=== PATIENT | female | born 1965 | race Caucasian/White ===

== ENCOUNTER 2017-05-22 17:50 | Emergency (ER) | payer MEDICARE, MEDICAID | END 2017-05-22 21:10 | disposition home or self-care (01) | LOC: ERS 17:50 | DX: J20.9 Acute bronchitis, unspecified (principal); I11.0 Hypertensive heart disease with heart failure; I50.9 Heart failure, unspecified; F31.9 Bipolar disorder, unspecified | CPT/HCPCS: 99283 ==

== ENCOUNTER 2017-08-15 14:45 | Outpatient (CLI) | payer MEDICARE, MEDICAID | END 2017-08-15 14:46 | disposition home or self-care (01) | LOC: BICRAD 14:45 | PROVIDERS: ATTEND Neurological Surgery | DX: M54.16 Radiculopathy, lumbar region (principal); M54.12 Radiculopathy, cervical region; M47.816 Spondylosis without myelopathy or radiculopathy, lumbar region; I70.90 Unspecified atherosclerosis; Z98.890 Other specified postprocedural states | CPT/HCPCS: 72040; 72100 ==

== ENCOUNTER 2018-02-06 06:34 | Day surgery (SDC) | payer MEDICARE, MEDICAID ==
[2018-02-05 12:20] VITALS: BMI 28.3
[2018-02-06 07:38] VITALS: BP 122/99; TEMP 97.2
--- NOTE | 2018-02-06 10:10 | RAD ---
CERVICAL SPINE MYELOGRAM INDICATION: Cervical radiculopathy, neck pain. PROCEDURE: After informed consent had been obtained, the patient was escorted to the interventional suite and pl aced on the procedural table. [employer] imaging was performed. The patient was placed into a prone posi tion. Skin on the low back was then prepped and draped in the standard sterile fashion and topical a nd regional soft tissue anesthesia was achieved with 1% lidocaine and sodium bicarbonate. L3-4 left interlaminar approach was selected, and a 22 gauge needle was uneventfully advanced into the thecal sac with clear color CSF. Subsequently, 9 cc Isovue-M 300 was instilled into the thecal sac under re al time fluoroscopy. Appropriate opacification of thecal sac demonstrated with imaging stored for co nfirmation. The needle was then removed from the patient. The patient tolerated the procedure well and was then transferred to CT to undergo subsequent myelogram. Reference separate report for full d etails. FINDINGS: On the ct scan technician lumbar images, there is evidence of a mild T12 compression fracture which has progressed from prior exam. This finding was telephoned to patient's neurosurgeon, Ernst Odell MD. IMPRESSION: Technically successful cervical myelogram as detailed above. POS: [facility]
--- NOTE | 2018-02-06 10:33 | CT ---
CERVICAL SPINE CT WITH CONTRAST CT CERVICAL MYELOGRAM: CLINICAL HISTORY: Cervical radiculopathy, neck pain. COMPARISON: Reference is made to a prior cervical spine myelogram 04/11/17. FINDINGS: There is anterior multilevel metallic fusion spanning C4 through C6, similar-appearing. There is a d isk space prosthesis again noted at the C3-4 level. There is no interval hardware complication evide nt. C1-2 level reveals degenerative hypertrophy without significant central canal stenosis. There is mil d effacement of the right ventral aspect of the thecal sac. C2-3: Mild disk osteophyte is present. There is right side uncinate process hypertrophy with minima l right foraminal narrowing. No high-grade left foraminal stenosis or central canal compromise. C3-4: Right asymmetric broad-based disk osteophyte is present with mild mass effect upon the right c entral hemicord. There is uncinate process hypertrophy and moderate bilateral neural foraminal steno sis. C4-5: Broad-based osteophyte ridge is present with mild central canal stenosis. There is a right pa racentral osteophyte which does efface and slightly flatten the ventral aspect of the cervical spinal cord. Bilateral uncinate process hypertrophy is present, right greater than left, with moderate rig ht and mild left neural foraminal stenosis. C5-6: There is mild central canal stenosis and mild to moderate bilateral neural foraminal stenosis on the basis of broad-based osteophyte and uncinate process hypertrophy. C6-7: Broad-based osteophyte ridge results in mild to moderate central canal narrowing with mild christopher tral cord flattening more notable to the right of midline. There is severe left and mild to moderate right neural foraminal stenosis on the basis of uncinate process hypertrophy and disk-osteophyte com plex. C7-T1: No high-grade central canal or foraminal stenosis. IMPRESSION: Multilevel degenerative change throughout the postoperative cervical spine as outlined above. POS: [facility]
[2018-02-06] MEDS ORDERED: Iopamidol-M 300 61% 15 ML VIAL ONE (14:48)
== END 2018-02-06 10:05 | disposition home or self-care (01) ==
LOC: RAD 06:34
PROVIDERS: ATTEND Neurological Surgery
DX: M48.02 Spinal stenosis, cervical region (principal); M48.52XA Collapsed vertebra, not elsewhere classified, cervical region, initial encounter for fracture; M47.22 Other spondylosis with radiculopathy, cervical region
CPT/HCPCS: 62302; 72126

== ENCOUNTER 2018-02-26 09:30 | Outpatient (CLI) | payer MEDICARE, MEDICAID | END 2018-02-26 09:31 | disposition home or self-care (01) | LOC: CTENTCT 09:30 | PROVIDERS: ATTEND Otolaryngology Plastic Surgery within the Head & Neck | DX: J32.9 Chronic sinusitis, unspecified (principal) | CPT/HCPCS: 70486 ==

== ENCOUNTER 2018-03-11 09:02 | Outpatient (CLI) | payer MEDICARE, MEDICAID ==
[2018-03-11 09:51] LABS: Hemoglobin 13.9 g/dL (12.0-16.0); Mean Corpuscular HGB CONC 34.8 g/dL (32.0-36.0); Mean Corpuscular Hemoglobin 31.3 pg (27.0-31.0); Mean Corpuscular Volume 89.7 fL (78.0-98.0); Mean Platelet Volume 7.6 fL (7.4-10.4); Platelet Count 191 thou/uL (130-400); Red Blood Cell (RBC) Count 4.46 mill/uL (4.20-5.40); White Blood Cell (WBC) Count 4.9 thou/uL (4.8-10.8)
[2018-03-11 10:43] LABS: Anion Gap 12 mmol/L (10-20); BUN (Urea Nitrogen) 13 mg/dL (9.8-20.1); Calc. Creatinine Clearance 0 mL/min (70-130); Calcium 8.9 mg/dL (7.8-10.44); Carbon Dioxide 24 mmol/L (22-29); Chloride 108 mmol/L (98-107); Estimated GFR-MDRD 79; Glucose 100 mg/dL (70-105); Potassium 4.1 mmol/L (3.5-5.1); Sodium 140 mmol/L (136-145)
--- NOTE | 2018-03-13 15:07 | EKG ---
Test Reason : Blood Pressure : / mmHG Vent. Rate : 087 BPM Atrial Rate : 087 BPM P-R Int : 166 ms QRS Dur : 080 ms QT Int : 378 ms P-R-T Axes : 083 085 087 degrees QTc Int : 454 ms Normal sinus rhythm Low voltage QRS Nonspecific T wave abnormality Abnormal ECG When compared with ECG of 01-JAN-2017 11:55, Nonspecific T wave abnormality no longer evident in Inferior leads T wave inversion no longer evident in Lateral leads Confirmed by JADON HOGAN MD ([id number]) on 03/13/2018 3:07:15 PM Referred By: CHUYITA Confirmed By:JADON HOGAN MD
== END 2018-03-11 09:03 | disposition home or self-care (01) ==
LOC: LABBT 09:02
PROVIDERS: ATTEND Neurological Surgery
DX: Z01.818 Encounter for other preprocedural examination (principal); M54.12 Radiculopathy, cervical region
CPT/HCPCS: 80048; 85027; 93005; 93010

== ENCOUNTER 2018-03-11 09:30 | Inpatient (IN) | payer MEDICARE, MEDICAID ==
[2018-03-11 09:50] VITALS: BMI 29.2
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
[2018-03-18] MEDS ORDERED: Clindamycin/D5W 900 mg/50 ml Premix Bag ONE (06:04)
[2018-03-18] MEDS ORDERED: Levofloxacin 500 mg/D5W 100 ml Premix Bag ONE (06:04)
[2018-03-18] MEDS ORDERED: Oxymetazoline HCl 0.05% ( 15 ML ) ONE ×2 (06:05→06:21)
[2018-03-18] MEDS ORDERED: Thrombin 5000 UNITS/5 ML VIAL ONE (06:21)
[2018-03-18] MEDS ORDERED: Lidocaine 1% w/Epinephrine 1:100K 30 ML VIAL ONE (06:21)
[2018-03-18] MEDS ORDERED: Midazolam HCl 2 mg/2 ml Vial ONE (06:58)
[2018-03-18] MEDS ORDERED: Fentanyl 100 MCG/2 ML VIAL ONE ×2 (07:02→08:50)
[2018-03-18] MEDS ORDERED: Morphine Sulfate 2 MG/ML SYRINGE SLOW IVP PRN (09:24)
[2018-03-18] MEDS ORDERED: Promethazine HCl 25 MG/ML VIAL SLOW IVP PRN (09:24)
[2018-03-18] MEDS ORDERED: Meperidine HCl/PF 25 MG/ML VIAL SLOW IVP PRN (09:24)
[2018-03-18] MEDS ORDERED: HYDROmorphone 2 MG/ML VIAL SLOW IVP PRN (09:24)
[2018-03-18] MEDS ORDERED: Promethazine HCl 25 MG/ML VIAL IM PRN (09:24)
[2018-03-18] MEDS ORDERED: Ondansetron HCl/PF 4 MG/2 ML Vial IVP PRN (09:24)
--- NOTE | 2018-03-18 10:37 | OP ---
DATE OF PROCEDURE: 03/18/2018 SURGEON: Marcos Odell M.D. PROGRAM DEVELOPER: CORY Ball INDICATION: Pain. DIAGNOSIS: Cervical stenosis with cervical radiculopathy and neck pain. PROCEDURE: Removal of anterior instrumentation and anterior cervical diskectomy and fusion C6-7. ANESTHESIA: General. TECHNIQUE: The patient was brought into the operating room and placed under general anesthesia. She was placed on the table in supine position. Dr. Ralph Arango started the case with an ENT procedure to be dictated in a separate note. We then planned a transverse incision on the neck on the right s frankie. Dr. Arango was responsible for the exposure down to the prevertebral space which will also be d ictated in a separate note. After access to the front of the spine. We identified the patient's pre viously placed hardware. This was removed in total, including 6 screws and a plate. We then obtaine d hemostasis. We then redirected our attention to the level below at C6-7 where an annulotomy was pe rformed as well as removal of disk material and anterior and posterior osteophytes. After a complete decompression, a 6 mm lordotic PEEK cage packed with allograft and autograft material was placed wit hin the interbody space. An anterior cervical plate was then fashioned to the front of the spine and secured with a total of 4 fixed screws. Midline and lateral structures were inspected and found to be free from significant trauma. The wound was irrigated. Hemostasis was maintained throughout. Th e wound was then closed in anatomic layers and a pressure dressing was applied. There were no known procedural complications.
[2018-03-18] MEDS ORDERED: Glycopyrrolate 0.2 MG/ML 5 ML SYRINGE ONE (12:19)
[2018-03-18] MEDS ORDERED: Lidocaine 1% PF 5 ML VIAL ONE ×2 (12:19)
[2018-03-18] MEDS ORDERED: PHENYLEPHRINE-NS 100 MCG/ML 10 ML SYRINGE ONE (12:19)
[2018-03-18] MEDS ORDERED: PROPOFOL 200 MG/20 ML VIAL ONE (12:19)
[2018-03-18] MEDS ORDERED: Dexamethasone 20 MG/5 ML VIAL ONE (12:19)
[2018-03-18] MEDS ORDERED: Succinylcholine Chloride 20 MG/ML 10 ml SYRINGE FS ONE (12:19)
[2018-03-18] MEDS ORDERED: Ondansetron HCl/PF 4 MG/2 ML Vial ONE (12:19)
--- NOTE | 2018-03-19 11:01 | PQF ---
JORDAN AN JAMES BRADLEY MD [id number] CLINICAL DOCUMENTATION CLARIFICATION FORM: POST DISCHARGE Addendum to original discharge summary date: ____ Late entry note date: __ DATE: 03/19/18 ATTN: Please exercise your independent, professional judgment in responding to the clarification form. Clinical indicators are provided on the bottom of this form for your review Please check appropriate box(s) to clarify if the following diagnosis has been ruled in or ruled out: Myelopathy (CDI/ Coding list diagnosis here) [ ] Ruled in diagnosis [ ] Continue to treat [ ] Resolved [ ] Ruled out diagnosis [ ] Cannot rule out diagnosis [ ] Other diagnosis [ ] Unable to determine In addition, please specify: Present on Admission (POA): [ ] Yes [ ] No [ ] Unable to determine For continuity of documentation, please document condition throughout progress notes and discharge summary. Thank You. CLINICAL INDICATORS - SIGNS / SYMPTOMS / LABS To support the diagnosis Neck and shoulder pain RISK FACTORS To support diagnosis Spinal stenosis & radiculopathy TREATMENTS To support diagnosis Spinal fusion (This form is maintained as a part of the permanent medical record) 2014 [employer]. All Rights Reserved [facility]
--- NOTE | 2018-03-19 11:22 | OP ---
PREOPERATIVE DIAGNOSES: 1. Pansinusitis. 2. Bilateral nasal polyposis. 3. Bilateral inferior turbinate hypertrophy. 4. Nasal obstruction. 5. Cervical myelopathy. PROCEDURES: 1. Bilateral endoscopic sinus surgery, total ethmoidectomies. 2. Bilateral endoscopic sinus surgery, frontal sinusotomy with removal of tissue. 3. Bilateral endoscopic sinus surgery, maxillary antrostomies with removal of tissue. 4. Bilateral endoscopic sinus surgery, sphenoidotomies with removal of tissue. 5. Bilateral inferior turbinate submucosal resection. 6. [place] cranial based image guided surgery. SURGEON: Rik Arango M.D. ESTIMATED BLOOD LOSS: 50 mL. COMPLICATIONS: None. ANESTHESIA: GETA. PROCEDURE IN DETAIL: The patient was taken to the operating room and placed supine on the table. Ge neral endotracheal anesthesia was obtained. The patient was prepped and draped for standard nasal pr ocedure. Following this, the 0 degree scope was advanced in the nasal cavity. The landmark image gu ided system was then set up, calibrated and was noted to be within 0.1 mm of accuracy. Following thi s, the nasal cavity was examined with the nasal endoscope, nasal polyps were completely obstructing t he nasal cavity bilaterally. These were removed using the 0 degree microdebrider under image guided surveillance. Following this, the middle turbinates were noted and identified and were gently medial ized with a [place] elevator. The uncinate process which was displaced anteriorly and medially from th e nasal polyps was removed using the microdebrider and upbiting [place] forceps bilaterally. Follo wing this, the ethmoidal bulla was identified bilaterally and was punctured and removed using the 0 d egree microdebrider and upbiting [place] forceps under image guided procedure. Following this, the natural maxillary sinus ostia was widened and displaced secondary to profuse nasal polyps which were removed using the straight microdebrider. Tissue was removed. The nasal polyps were removed from w ithin the maxillary sinus using the curved microdebrider bilaterally. Following this, the grand lame lla was identified bilaterally and was punctured in the posterior ethmoidal cells. Working from post erior to anterior, the ethmoidal cells were opened and nasal polyps were removed throughout the ethmo idal areas. Following this, the sphenoid sinuses were approached through the ethmoidectomies where t he image guided system was used to create a sphenoidotomy in the bilateral anterior wall of the sphen oid sinuses. This was then widened medially and inferiorly with the microdebrider. Following this, 40 degree microdebrider was then used to further open the frontal recess cells and frontal sinus osti a bilaterally. Nasal polyps were removed from the frontal sinuses bilaterally. Following this, infe rior turbinates were punctured on their anterior inferior aspect with the submucosal microdebrider an d submucosal resection was performed of the anterior inferior aspects of the inferior turbinates bila terally. Following this, the patient tolerated procedure well. Nasal cavity was irrigated. MeroPac ks were placed within the middle meatus.
--- NOTE | 2018-03-19 11:26 | OP ---
DATE OF PROCEDURE: 03/18/2018 PREOPERATIVE DIAGNOSES: 1. Cervical myelopathy. 2. Need for anterior approach for revision anterior cervical disk fusion surgery. SURGEON: Rik Arango M.D. DIRECTOR COMM[facility]ITY [facility]: CORY Vaughn ESTIMATED BLOOD LOSS: Less than 5 mL. COMPLICATIONS: None. ANESTHESIA: GETA. PROCEDURE IN DETAIL: The patient was taken to the operating room. Previous sinus surgery was perfor med. Following this, a new procedure was created and the patient was reprepped and draped for standa rd surgical procedure. An incision was made just inferior to a previous transverse lower right neck incision. The incision was through skin and subcutaneous tissue and the platysmal layer. Subplatysm al flaps were elevated superiorly and inferiorly. Following this, the sternocleidomastoid fascia was identified. Staying just anterior to this, dissection was then carried medially in the neck. The l aryngeal structures as well as the recurrent laryngeal nerve was identified and was retracted mediall y. The great vessels were identified and retracted laterally. Exposure to the previous plate was pr ovided to the Neurosurgery group and then Dr. Fredy Odell took over the remainder of the procedure.
== END 2018-03-18 12:15 | disposition home or self-care (01) | DRG 472 ==
LOC: SURG A 03-18 05:27
PROVIDERS: ADMIT Neurological Surgery; ATTEND Neurological Surgery
PROC: 0RG10AJ Fusion of Cervical Vertebral Joint with Interbody Fusion Device, Posterior Approach, Anterior Column, Open Approach (ICD-10-PCS; principal; 2018-03-18)
PROC: 0RT30ZZ Resection of Cervical Vertebral Disc, Open Approach (ICD-10-PCS; 2018-03-18)
PROC: 0RP10AZ Removal of Interbody Fusion Device from Cervical Vertebral Joint, Open Approach (ICD-10-PCS; 2018-03-18)
PROC: 0CJS8ZZ Inspection of Larynx, Via Natural or Artificial Opening Endoscopic (ICD-10-PCS; 2018-03-18)
DX: M48.02 Spinal stenosis, cervical region (principal); G95.9 Disease of spinal cord, unspecified; M54.12 Radiculopathy, cervical region; Z88.0 Allergy status to penicillin; Z88.6 Allergy status to analgesic agent; Z79.899 Other long term (current) drug therapy; I25.10 Atherosclerotic heart disease of native coronary artery without angina pectoris; K21.9 Gastro-esophageal reflux disease without esophagitis; J45.909 Unspecified asthma, uncomplicated; Z95.1 Presence of aortocoronary bypass graft; Z95.5 Presence of coronary angioplasty implant and graft; J33.9 Nasal polyp, unspecified; J34.3 Hypertrophy of nasal turbinates; J34.2 Deviated nasal septum
CPT/HCPCS: 76001; C1713; C1776; J0131; J1100; J1956; J2001; J2250; J2405; J2704; J3010; J3490

== ENCOUNTER 2018-04-29 13:02 | Outpatient (CLI) | payer MEDICARE, MEDICAID ==
--- NOTE | 2018-04-29 14:01 | RAD ---
CERVICAL SPINE THREE VIEWS: HISTORY: A 53-year-old female with a history of cervical radiculopathy. Prior surgery on 03/18/2018. COMPARISON: CT cervical myelogram from 02/06/2018. FINDINGS: Intradiskal prosthesis at C3-C4. Removal of the anterior cervical fusion changes at C4-C5 with persi stent anterior metal plate and screws at C6-C7 with intradiskal prosthesis. C7 and T1 are partially obscured on the lateral view, and portions of C1 and the tip of the odontoid are partially obscured o n the AP open-mouth view. Minimal diffuse inferior prevertebral soft tissue swelling, possibly relat ed to prior surgery. IMPRESSION: Postoperative changes of the cervical spine. Minimal prevertebral soft tissue swelling. No overt ma lalignment. POS: [facility]
== END 2018-04-29 13:03 | disposition home or self-care (01) ==
LOC: TBSIIMAG 13:02
PROVIDERS: ATTEND Neurological Surgery
DX: M54.12 Radiculopathy, cervical region (principal); R22.1 Localized swelling, mass and lump, neck; Z98.890 Other specified postprocedural states
CPT/HCPCS: 72040

== ENCOUNTER 2018-05-13 08:57 | Day surgery (SDC) | payer MEDICARE, MEDICAID ==
[2018-05-12 14:12] VITALS: BMI 28.3
[2018-05-13] MEDS ORDERED: Propofol 500 MG/50 ML VIAL ONE (10:51)
[2018-05-13] MEDS ORDERED: Fentanyl 100 MCG/2 ML VIAL ONE ×2 (10:51→13:12)
[2018-05-13] MEDS ORDERED: Midazolam HCl 2 mg/2 ml Vial ONE (10:51)
[2018-05-13] MEDS ORDERED: EPINEPHrine 1 MG/ML AMP ONE (11:56)
[2018-05-13] MEDS ORDERED: Promethazine HCl 25 MG/ML VIAL ONE (12:45)
[2018-05-13] MEDS ORDERED: PROPOFOL 200 MG/20 ML VIAL ONE (15:22)
[2018-05-13] MEDS ORDERED: Ondansetron PF 4 MG/2 ML Vial ONE (15:22)
[2018-05-13] MEDS ORDERED: Succinylcholine Chloride 20 MG/ML 10 ml SYRINGE FS ONE (15:22)
[2018-05-13] MEDS ORDERED: Dexamethasone 20 MG/5 ML VIAL ONE (15:22)
[2018-05-13] MEDS ORDERED: Lidocaine 1% PF 5 ML VIAL ONE (15:22)
--- NOTE | 2018-05-14 12:48 | OP ---
DATE OF PROCEDURE: 05/13/2018 PREOPERATIVE DIAGNOSES: 1. Right true vocal cord paralysis. 2. Dysphonia. POSTOPERATIVE DIAGNOSES: 1. Right true vocal cord paralysis. 2. Dysphonia. PROCEDURES: 1. Microsuspension direct laryngoscopy. 2. Right true vocal cord Prolaryn vocal cord medialization laryngoplasty. SURGEON: Dr. Rik Arango. ESTIMATED BLOOD LOSS: 0 mL. COMPLICATIONS: None. ANESTHESIA: Jet ventilation. DESCRIPTION OF PROCEDURE: The patient was taken to the operating room and placed supine on the table . [place] jet ventilation tube was placed in the trachea by Anesthesia staff. The head of bed was turned 90 degrees. A shoulder roll was placed and the patient's neck and head were gently placed int o minimal extension. Following this, the Dedo laryngoscope was used to examine the oral cavity, orop harynx, and hypopharyngeal structures which were all noted to be within normal limits. Following thi s, the laryngeal inlet was visualized. Vocal cords noted to be within normal limits. The subglottic area was clear. The patient was placed in suspension and the operating microscope was brought into the field using the 400 mm lens. The right true vocal cord was visualized and the injection needle l oaded with Prolaryn injection was injected just lateral to the thyroarytenoid muscle. Multiple injec tions were made in the posterior and mid and anterior portions of the right true vocal cord medializi ng the vocal cord. Patient tolerated the procedure well.
== END 2018-05-13 15:10 | disposition home or self-care (01) ==
LOC: SDC 08:57
PROVIDERS: ATTEND Otolaryngology Plastic Surgery within the Head & Neck
PROC: 3E0F8GC Introduction of Other Therapeutic Substance into Respiratory Tract, Via Natural or Artificial Opening Endoscopic (ICD-10-PCS; principal; 2018-05-13)
DX: J38.01 Paralysis of vocal cords and larynx, unilateral (principal); Z79.51 Long term (current) use of inhaled steroids; Z79.82 Long term (current) use of aspirin; Z79.899 Other long term (current) drug therapy; Z88.0 Allergy status to penicillin; Z88.8 Allergy status to other drugs, medicaments and biological substances; Z98.890 Other specified postprocedural states
CPT/HCPCS: 85014; 96374; J0171; J1100; J2001; J2250; J2405; J2550; J2704; J3010

== ENCOUNTER 2018-06-16 08:38 | Outpatient (CLI) | payer MEDICARE, MEDICAID ==
--- NOTE | 2018-06-16 15:50 | RAD ---
DOUBLE CONTRAST BARIUM ESOPHAGRAM: 06/16/18 INDICATION: History of dysphagia. Fluoroscopic time: 1.6 minutes. Total exposure: 19.524 Gy*cm2. TECHNIQUE: Thin barium, thick barium and effervescent crystals utilized for a double contrast esophagram. FINDINGS: The esophagus demonstrates a normal contour and mucosal pattern. There is a small hiatal hernia. Mode rate gastroesophageal reflux was seen up to the mid thoracic spine. There are mild tertiary contracti ons of the mid to distal esophagus. Small hiatal hernia was present. A 12.5 mm tablet passed without difficulty. IMPRESSION: 1. Small hiatal hernia. 2. Moderate gastroesophageal reflux. 3. Tertiary contraction of the mid to distal esophagus may be related to presbyesophagus or esop hageal dysmotility related to possible esophagitis. POS: [facility]
== END 2018-06-16 08:39 | disposition home or self-care (01) ==
LOC: RAD 08:38
PROVIDERS: ATTEND Otolaryngology Plastic Surgery within the Head & Neck
DX: R13.10 Dysphagia, unspecified (principal); K44.9 Diaphragmatic hernia without obstruction or gangrene; K21.9 Gastro-esophageal reflux disease without esophagitis
CPT/HCPCS: 74220

== ENCOUNTER 2018-07-15 08:54 | Day surgery (SDC) | payer MEDICARE, MEDICAID ==
[2018-07-10 13:40] VITALS: BMI 28.5
[2018-07-15] MEDS ORDERED: EPINEPHrine 1 MG/ML AMP ONE (10:30)
[2018-07-15] MEDS ORDERED: Fentanyl 100 MCG/2 ML VIAL ONE (10:33)
[2018-07-15] MEDS ORDERED: Midazolam HCl 2 mg/2 ml Vial ONE (10:33)
[2018-07-15] MEDS ORDERED: Propofol 500 MG/50 ML VIAL ONE (11:08)
[2018-07-15] MEDS ORDERED: Hydrocodone-Acetamin 15 ML UDCUP ONE (13:34)
[2018-07-15] MEDS ORDERED: Ondansetron PF 4 MG/2 ML Vial ONE (19:00)
[2018-07-15] MEDS ORDERED: Succinylcholine Chloride 20 MG/ML 10 ml SYRINGE FS ONE (19:00)
[2018-07-15] MEDS ORDERED: Lidocaine 1% PF 5 ML VIAL ONE (19:00)
[2018-07-15] MEDS ORDERED: Dexamethasone 20 MG/5 ML VIAL ONE (19:00)
[2018-07-15] MEDS ORDERED: Naloxone HCl 0.4 mg/ml Vial ONE (19:00)
[2018-07-15] MEDS ORDERED: PHENYLEPHRINE-NS 100 MCG/ML 10 ML SYRINGE ONE (19:00)
--- NOTE | 2018-07-16 02:39 | OP ---
DATE OF PROCEDURE: 07/15/2018 PREOPERATIVE DIAGNOSES: 1. Right true vocal cord paralysis. 2. Dysphonia. POSTOPERATIVE DIAGNOSES: 1. Right true vocal cord paralysis. 2. Dysphonia. PROCEDURES PERFORMED: 1. Right true vocal cord medialization, laryngoplasty with Prolaryn injection. 2. Microsuspension direct laryngoscopy. ESTIMATED BLOOD LOSS: 0 mL. COMPLICATION: None. ANESTHESIA: Jet ventilation. DESCRIPTION OF PROCEDURE: The patient was taken to the operating room. Jet ventilation was obtained by the anesthesia staff. Tube was secured in the left lower lip, and head of the bed was turned, and a shoulder roll was placed, and the head was placed in very gentle extension. Following this, a tooth guard was inserted into the oral cavity, and a Dedo laryngoscope was then used to examine the oral cavity, oropharynx, and hypopharynx, which was noted to be within normal limits. The true vocal cords were visualized and was placed in suspension using the 400 mm lens. The laryngeal inlet and vocal cords were visualized. The Prolaryn injection was injected just lateral to the thyroarytenoid muscle, medialized in the vocal cord. A total of 25 mL of injection was placed. The patient tolerated the procedure well. Job ID: [id number]
== END 2018-07-15 14:28 | disposition home or self-care (01) ==
LOC: SDC 08:54
PROVIDERS: ATTEND Otolaryngology Plastic Surgery within the Head & Neck
PROC: 3E0F8GC Introduction of Other Therapeutic Substance into Respiratory Tract, Via Natural or Artificial Opening Endoscopic (ICD-10-PCS; principal; 2018-07-15)
DX: J38.01 Paralysis of vocal cords and larynx, unilateral (principal); J45.909 Unspecified asthma, uncomplicated; K21.9 Gastro-esophageal reflux disease without esophagitis; G43.909 Migraine, unspecified, not intractable, without status migrainosus; I51.9 Heart disease, unspecified; Z79.82 Long term (current) use of aspirin; Z79.51 Long term (current) use of inhaled steroids; Z79.899 Other long term (current) drug therapy; Z88.0 Allergy status to penicillin; Z88.8 Allergy status to other drugs, medicaments and biological substances
CPT/HCPCS: 36415; 85014; J0171; J1100; J2001; J2250; J2310; J2405; J2704; J3010

== ENCOUNTER 2018-08-26 09:32 | Outpatient (CLI) | payer MEDICARE, OTHER | END 2018-08-26 09:33 | disposition home or self-care (01) | LOC: BICMAMMO 09:32 | PROVIDERS: ATTEND Family Medicine | DX: Z12.31 Encounter for screening mammogram for malignant neoplasm of breast (principal); Z80.3 Family history of malignant neoplasm of breast; Z85.850 Personal history of malignant neoplasm of thyroid; Z85.09 Personal history of malignant neoplasm of other digestive organs | CPT/HCPCS: 77063; 77067 ==

== ENCOUNTER 2018-11-02 13:48 | Outpatient (CLI) | payer MEDICARE, MEDICAID | END 2018-11-02 13:49 | disposition home or self-care (01) | LOC: CTENTCT 13:48 | PROVIDERS: ATTEND Otolaryngology Plastic Surgery within the Head & Neck | DX: J32.9 Chronic sinusitis, unspecified (principal) | CPT/HCPCS: 70486 ==

== ENCOUNTER 2018-11-11 08:09 | Day surgery (SDC) | payer MEDICARE, OTHER ==
[2018-11-10 15:30] VITALS: BMI 29.0
[2018-11-11] MEDS ORDERED: Albuterol Sulfate 2.5 mg/3 ml Neb ONE (10:55)
[2018-11-11] MEDS ORDERED: Oxymetazoline HCl 0.05% ( 15 ML ) ONE ×2 (11:13→11:43)
[2018-11-11] MEDS ORDERED: Lidocaine 1% w/Epinephrine 1:100K 20 ML VIAL ONE (11:13)
[2018-11-11] MEDS ORDERED: Albuterol Sulfate 2.5 mg/3 ml Neb NEB SCH (11:15)
[2018-11-11] MEDS ORDERED: Fentanyl 100 MCG/2 ML VIAL ONE ×2 (11:52→12:44)
[2018-11-11] MEDS ORDERED: Meperidine HCl/PF 25 MG/ML VIAL ONE (14:10)
[2018-11-11] MEDS ORDERED: PROPOFOL 200 MG/20 ML VIAL ONE (16:09)
[2018-11-11] MEDS ORDERED: Succinylcholine Chloride 20 MG/ML 10 ml SYRINGE FS ONE (16:09)
[2018-11-11] MEDS ORDERED: PHENYLEPHRINE-NS 100 MCG/ML 10 ML SYRINGE ONE (16:09)
[2018-11-11] MEDS ORDERED: Dexamethasone 20 MG/5 ML VIAL ONE (16:09)
[2018-11-11] MEDS ORDERED: Ondansetron PF 4 MG/2 ML Vial ONE (16:09)
[2018-11-11] MEDS ORDERED: Lidocaine 1% PF 5 ML VIAL ONE (16:09)
--- NOTE | 2018-11-12 18:43 | OP ---
DATE OF PROCEDURE: 11/11/2018 PREOPERATIVE DIAGNOSES: 1. Chronic rhinosinusitis. 2. Nasal polyposis. 3. Nasal septal deviation. 4. Bilateral inferior turbinate hypertrophy. 5. Nasal obstruction. POSTOPERATIVE DIAGNOSES: 1. Chronic rhinosinusitis. 2. Nasal polyposis. 3. Nasal septal deviation. 4. Bilateral inferior turbinate hypertrophy. 5. Nasal obstruction. PROCEDURES PERFORMED: 1. Bilateral endoscopic sinus surgery, total ethmoidectomy with removal of tissue. 2. Bilateral endoscopic sinus surgery, maxillary antrostomies with removal of tissue. 3. Bilateral endoscopic sinus surgery, frontal sinusotomies with removal of tissue. 4. Bilateral endoscopic sinus surgery, sphenoidotomies with removal of tissue. 5. Nasal septoplasty. 6. Bilateral inferior turbinate submucosal resection. 7. [place] image-guided intraoperative navigational cranial base surgery. ESTIMATED BLOOD LOSS: 100 mL. COMPLICATIONS: None. ANESTHESIA: HOME HEALTH CARE PHYSICIAN. PROCEDURE IN DETAIL: Patient was taken to the operating room and placed supine on the table. General endotracheal anesthesia was obtained by the anesthesia staff. Tube was secured in the left lower lip. Patient was then placed in the beach chair position, and Afrin pledgets were placed in the nasal cavity. Injections of 1% lidocaine with 1:100,000 epinephrine were made into the nasal septum as well as the inferior turbinates. Patient was then prepped and draped in standard surgical fashion for nasal surgery. Following this, the Afrin pledgets were removed. A Loving incision was made on the left nasal septum. Submucoperichondrial dissection was performed. The deviated portions of the septum included portions of the cartilage and the bony septum. These isolated areas were removed using 3 cutting rongeurs. There was noted to be a large dorsal and caudal strut, left intact for support of the nose. The mucoperichondrial flaps were then reapproximated using a 4-0 gut stitch. Any straight pieces of cartilage were crushed prior to this and placed between the mucoperichondrial flaps. Following this, the inferior turbinates were then punctured with a submucosal coblation wand, and submucosal coblations were performed of multiple areas of the inferior portion of the anterior inferior turbinate. Please note that the submucosal microdebrider was used to submucosally resect the anterior and inferior portions of the inferior turbinates bilaterally. Following this, the turbinates were laterally fractured with a [place] elevator. Following this, the [employer] image-guided system was set up and calibrated. It was noted to be within 1 mm of accuracy. Following this, 0-degree scope was advanced in the middle meatus. The middle turbinates had scarring present from the middle turbinates to the lateral nasal wall. There was also an excessive amount of nasal polyps and fungal like debris that was encountered in this area. The scar bands were lysed with the 0-degree microdebrider. The middle turbinates were gently medialized. Following this, the remnant of the ethmoidal cells were further opened using the image-guided system, working from anterior to posterior. Nasal polyps were removed throughout this area as well as purulence and thick scar debris. Following this, the maxillary sinuses were addressed using the curved microdebrider and the maxillary sinuses were reopened. There was previous scar bands and nasal polyps, which were completely obstructing the maxillary sinuses. On both sides were nasal polyps within the maxillary sinus that were removed using the curved microdebrider. Following this, a 45-degree scope and the up-biting microdebrider along with the image-guided system was then used to further open and dissect the very narrow frontal recess and frontal sinus ostia. There were nasal polyps throughout the frontal recess and frontal sinuses bilaterally, which were removed with a microdebrider and curved suction device. Following this, the sphenoid sinuses were approached through the posterior ethmoidal cells using the image guided system. The anterior face of the sphenoid sinuses was reopened on the left side. The left-sided small scar band and small polyps were removed. The right side had a marked amount of osteitic bone, which was opened and was widened medially and inferiorly with the microdebrider. Nasal cavity was irrigated. Mirapex was placed. [place] splints were placed and secured. The patient tolerated the procedure well. Job ID: [id number]
--- NOTE | 2018-11-13 07:13 | EKG ---
Test Reason : PREOP Blood Pressure : / mmHG Vent. Rate : 094 BPM Atrial Rate : 094 BPM P-R Int : 176 ms QRS Dur : 088 ms QT Int : 364 ms P-R-T Axes : 073 071 064 degrees QTc Int : 455 ms Normal sinus rhythm Abnormal ECG Confirmed by BRANDYN MARTIN ([id number]) on 11/13/2018 7:13:08 AM Referred By: DARIA Confirmed By:BRANDYN MARTIN
== END 2018-11-11 15:40 | disposition home or self-care (01) ==
LOC: SDC 08:09
PROVIDERS: ATTEND Otolaryngology Plastic Surgery within the Head & Neck
PROC: 09SM0ZZ Reposition Nasal Septum, Open Approach (ICD-10-PCS; principal; 2018-11-11)
PROC: 09TL0ZZ Resection of Nasal Turbinate, Open Approach (ICD-10-PCS; 2018-11-11)
PROC: 09TV8ZZ Resection of Left Ethmoid Sinus, Via Natural or Artificial Opening Endoscopic (ICD-10-PCS; 2018-11-11)
PROC: 09TU8ZZ Resection of Right Ethmoid Sinus, Via Natural or Artificial Opening Endoscopic (ICD-10-PCS; 2018-11-11)
PROC: 8E09XBZ Computer Assisted Procedure of Head and Neck Region (ICD-10-PCS; 2018-11-11)
PROC: 09BT8ZZ Excision of Left Frontal Sinus, Via Natural or Artificial Opening Endoscopic (ICD-10-PCS; 2018-11-11)
PROC: 09BW8ZZ Excision of Right Sphenoid Sinus, Via Natural or Artificial Opening Endoscopic (ICD-10-PCS; 2018-11-11)
PROC: 09BX8ZZ Excision of Left Sphenoid Sinus, Via Natural or Artificial Opening Endoscopic (ICD-10-PCS; 2018-11-11)
PROC: 09BQ8ZZ Excision of Right Maxillary Sinus, Via Natural or Artificial Opening Endoscopic (ICD-10-PCS; 2018-11-11)
PROC: 09BR8ZZ Excision of Left Maxillary Sinus, Via Natural or Artificial Opening Endoscopic (ICD-10-PCS; 2018-11-11)
PROC: 09BS8ZZ Excision of Right Frontal Sinus, Via Natural or Artificial Opening Endoscopic (ICD-10-PCS; 2018-11-11)
DX: J32.4 Chronic pansinusitis (principal); J33.9 Nasal polyp, unspecified; J34.2 Deviated nasal septum; J34.3 Hypertrophy of nasal turbinates; J34.89 Other specified disorders of nose and nasal sinuses; J45.909 Unspecified asthma, uncomplicated; G43.909 Migraine, unspecified, not intractable, without status migrainosus; K21.9 Gastro-esophageal reflux disease without esophagitis; Z79.899 Other long term (current) drug therapy; Z88.0 Allergy status to penicillin; Z88.8 Allergy status to other drugs, medicaments and biological substances; Z79.82 Long term (current) use of aspirin; Z79.51 Long term (current) use of inhaled steroids
CPT/HCPCS: 36415; 85014; 93005; 93010; 94640; J1100; J2001; J2175; J2405; J2704; J3010; J7611; J7620

== ENCOUNTER 2019-04-19 20:26 | Emergency (ER) | payer MEDICARE, OTHER ==
[2019-04-19] MEDS ORDERED: diphenhydrAMINE 50 MG/ML VIAL ONE (20:37)
[2019-04-19] MEDS ORDERED: Dexamethasone 10 MG/ML VIAL ONE (20:37)
[2019-04-19] MEDS ORDERED: EPINEPHrine 1 MG/ML AMP ONE (20:37)
[2019-04-19] MEDS ORDERED: Famotidine/PF 20 mg/2ml Vial ONE (20:37)
[2019-04-19] MEDS ORDERED: predniSONE 20 MG TAB ONE ×3 (20:37→20:59)
[2019-04-19 21:11] LABS: #Basophils 0.1 thou/uL (0.0-0.2); #Eosinphils 0.5 thou/uL (0.0-0.7); #Lymphocytes 2.1 thou/uL (1.20-3.40); #Monocytes 0.5 thou/uL (0.11-0.59); #Neutrophils 3.6 thou/uL (1.40-6.50); %Basophils 1.1 % (0.0-1.0); %Eosinophils 8.1 % (0.0-10.0); %Lymphocytes 30.9 % (21.0-51.0); %Monocytes 6.7 % (0.0-10.0); %Neutrophils 53.3 % (42.0-75.0); Hemoglobin 13.9 g/dL (12.0-16.0); Mean Corpuscular HGB CONC 34.3 g/dL (32.0-36.0); Mean Corpuscular Hemoglobin 29.8 pg (27.0-31.0); Mean Platelet Volume 9.3 fL (7.4-10.4); Platelet Count 227 thou/uL (130-400); RBC Distribution Width 12.7 % (11.5-14.5); Red Blood Cell (RBC) Count 4.66 mill/uL (4.20-5.40); White Blood Cell (WBC) Count 6.7 thou/uL (4.8-10.8)
[2019-04-19 21:33] LABS: ALT (SGPT) 14 U/L (8-55); AST (SGOT) 28 U/L (5-34); Alkaline Phosphatase 124 U/L (40-110); Anion Gap 15 mmol/L (10-20); BUN (Urea Nitrogen) 12 mg/dL (9.8-20.1); Bilirubin, Total 0.5 mg/dL (0.2-1.2); CK (CPK) 104 U/L (29-168); Calc. Creatinine Clearance 0 mL/min (70-130); Carbon Dioxide 22 mmol/L (22-29); Chloride 104 mmol/L (98-107); Estimated GFR-MDRD 73; Globulin 3.3 g/dL (2.4-3.5); Glucose 90 mg/dL (70-105); Potassium 4.5 mmol/L (3.5-5.1); Protein, Total 7.3 g/dL (6.0-8.3); Sodium 136 mmol/L (136-145)
--- NOTE | 2019-04-23 15:22 | EKG ---
Test Reason : Blood Pressure : / mmHG Vent. Rate : 099 BPM Atrial Rate : 099 BPM P-R Int : 160 ms QRS Dur : 086 ms QT Int : 360 ms P-R-T Axes : 074 053 054 degrees QTc Int : 462 ms Normal sinus rhythm Possible Left atrial enlargement Low voltage QRS Nonspecific ST and T wave abnormality Prolonged QT Abnormal ECG Confirmed by VERONICA TRIPATHI, CINDY ([id number]), proposal editor SYLVIA WARD ([id number]) on 04/23/2019 3:22:06 PM Referred By: Confirmed By:CINDY MARTIN MD
== END 2019-04-19 22:04 | disposition home or self-care (01) ==
LOC: ERS 20:26
DX: T63.461A Toxic effect of venom of wasps, accidental (unintentional), initial encounter (principal); I10 Essential (primary) hypertension; F31.9 Bipolar disorder, unspecified
CPT/HCPCS: 80053; 82550; 84484; 85025; 93005; 96361; 96372; 96374; 96375; J0171; J1100; J1200; J7512; S0028

== ENCOUNTER 2019-04-21 07:46 | Outpatient (CLI) | payer MEDICARE, OTHER ==
--- NOTE | 2019-04-21 08:45 | ULT ---
Exam: Right upper quadrant ultrasound: HISTORY: Right upper quadrant pain COMPARISON: 07/18/2012 FINDINGS: Visualized liver:Heterogeneously echogenic evidence for nonspecific chronic hepatic parenchymal proce ss. Gallbladder:Somewhat contracted gallbladder without overt gallstones. No pericholecystic fluid. Common bile duct:0.7 cm The visualized pancreas and right kidney are unremarkable. No evidence for abscess or abnormal fluid collection in the right upper quadrant. IMPRESSION: Heterogeneous liver echogenicity. Somewhat contracted gallbladder. Common bile duct 0.7 cm.
--- NOTE | 2019-04-21 11:52 | NM ---
EXAM: Nuclear medicine hepatobiliary scan: HISTORY: Right upper quadrant pain COMPARISON: Gallbladder ultrasound, 04/21/2019 RADIOPHARMACEUTICAL: 5.5 mCi technetium 99m labeled mebrofenin intravenously. FINDINGS: There is normal opacification of the liver with excretion into the gallbladder and into the small bow el by 60 minutes. Following administration of: 8 ounces of ensure by mouth, gallbladder ejection fraction eixely65%. IMPRESSION: Unremarkable nuclear medicine hepatic biliary scan. Normal ejection fraction.
== END 2019-04-21 07:47 | disposition home or self-care (01) ==
LOC: ULT 07:46
DX: R06.02 Shortness of breath (principal); I25.10 Atherosclerotic heart disease of native coronary artery without angina pectoris; K76.89 Other specified diseases of liver
CPT/HCPCS: 76705; 78227; A9537

== ENCOUNTER 2019-08-13 09:55 | Outpatient (CLI) | payer MEDICARE, MEDICAID ==
[2019-08-13] MEDS ORDERED: Iopamidol-370 76% 500 ML 1 ML ONE (10:39)
--- NOTE | 2019-08-13 10:50 | CT ---
CT Abdomen Pelvis W Con: 08/13/2019 12:00 AM CLINICAL INFORMATION: Generalized abdominal pain and cramping COMPARISON: None. TECHNIQUE: Multiple contiguous axial images were obtained and a CT of the abdomen and pelvis with IV contrast. Oral contrast was administered. Coronal and sagittal reformats were performed. FINDINGS: Lower Chest: within normal limits. Abdomen: Liver: within normal limits. Bile Ducts: Normal caliber. Gallbladder: No calcified gallstones. Normal caliber wall. Pancreas: within normal limits. Spleen: within normal limits. Adrenals: within normal limits. Kidneys: within normal limits. Pelvis: Reproductive Organs: Status post hysterectomy. Ureters: within normal limits. Bladder: within normal limits. Peritoneum: No ascites or free air, no fluid collection. Bowel: Normal caliber. Scattered diverticula in the colon. The appendix is not definitely visualized. Mesentery and Retroperitoneum: No enlarged mesenteric or retroperitoneal lymph nodes. Vessels: Normal. Abdominal Wall: within normal limits. Bones: Degenerative changes and postsurgical changes are seen in the spine. IMPRESSION: 1. No evidence of acute intraabdominal or pelvic abnormality. 2. Diverticulosis
== END 2019-08-13 09:56 | disposition home or self-care (01) ==
LOC: BICCT 09:55
PROVIDERS: ATTEND Physician Assistant Medical
DX: R10.84 Generalized abdominal pain (principal); R19.4 Change in bowel habit; K57.90 Diverticulosis of intestine, part unspecified, without perforation or abscess without bleeding
CPT/HCPCS: 74177; Q9967

== ENCOUNTER 2019-10-09 13:13 | Emergency (ER) | payer MEDICARE, MEDICAID ==
--- NOTE | 2019-10-09 14:25 | RAD ---
EXAM: Chest PA and lateral: HISTORY: Cough. Symptoms x2 months COMPARISON: 07/08/2019 FINDINGS: Table sternotomy wires. Stable cervical fusion hardware. Heart: Normal cardiac silhouette Aorta: Unremarkable Pulmonary vessels: Normal Costophrenic angles: Costophrenic angles are clear. Lungs: No consolidation or masses. Pneumothorax: No pneumothorax Osseous structures: No osseous abnormalities IMPRESSION: No acute cardiopulmonary process.
== END 2019-10-09 14:50 | disposition home or self-care (01) ==
LOC: ERS 13:13
DX: J20.9 Acute bronchitis, unspecified (principal); I10 Essential (primary) hypertension; F31.9 Bipolar disorder, unspecified
CPT/HCPCS: 71046

== ENCOUNTER 2019-11-01 11:18 | Emergency (ER) | payer MEDICARE, MEDICAID, OTHER | END 2019-11-01 11:57 | disposition home or self-care (01) | LOC: ERS 11:18 | DX: B34.9 Viral infection, unspecified (principal); J45.909 Unspecified asthma, uncomplicated; F31.9 Bipolar disorder, unspecified; J44.9 Chronic obstructive pulmonary disease, unspecified; I10 Essential (primary) hypertension | CPT/HCPCS: 99284 ==

== ENCOUNTER 2019-11-19 09:07 | Outpatient (CLI) | payer MEDICARE, MEDICAID ==
--- NOTE | 2019-11-19 13:43 | MRI ---
MR OF THE CERVICAL SPINE WITHOUT CONTRAST: 11/19/19 INDICATION: History of spinal stenosis and neck pain. COMPARISON: Prior CT myelogram from [facility] dated 02/06/18. FINDINGS: The previously seen ACDF involving C4 through C6 has been reviewed. The instrumentation has been margie herman. There has been interval placement of a new ACDF plate spanning C6-7. There is intervertebral dis c cage again seen at C 3-4. There is solid ankylosis of the intervertebral disc space from C3 through the C6 vertebral level . There is straightening of the normal cervical lordosis. The visualized aspects of the posterior fossa are unremarkable appearing. Craniocervical junction ana laura ears within normal limits. At C2-C3, there is mild facet joint degenerative change and a broad based bulge but no appreciable ce ntral canal or neural foraminal narrowing. At C3-C4, there is a broad based osteophyte complex causing mild central canal narrowing with mild ve ntral lateral effacement of the right aspect of the spinal cord. There is mild bilateral neural dionte inal narrowing. This appears similar to the comparison examination. At C4-C5, there is no appreciable central canal or neural foraminal narrowing. At C5-C6, there is mild bilateral neural foraminal narrowing due to some residual uncovertebral hyper trophy that appears similar. At C6-C7, there is some residual uncovertebral hypertrophy on the left that induces severe left neura l foraminal narrowing. This is stable to the prior exam. At C7-T1, there is no appreciable central canal or neural foraminal narrowing. IMPRESSION: 1. Some interval revision of the interbody fusion of the cervical spine with placement of an ACD F now at C6-7. There is solid fusion of C3 through C6. 2. Multilevel neural foraminal narrowing and central canal narrowing as detailed above is stable appearing. POS: [facility]
== END 2019-11-19 09:08 | disposition home or self-care (01) ==
LOC: BICMRI 09:07
PROVIDERS: ATTEND Internal Medicine
DX: M48.02 Spinal stenosis, cervical region (principal); Z98.1 Arthrodesis status
CPT/HCPCS: 72141

== ENCOUNTER 2020-03-10 06:41 | Day surgery (SDC) | payer MEDICARE, MEDICAID ==
[2020-03-09 13:46] VITALS: BMI 21.7
[2020-03-10 08:01] VITALS: BP 116/91; TEMP 98
--- NOTE | 2020-03-10 10:51 | CT ---
CT lumbar spine with contrast CT lumbar spine postmyelogram HISTORY: Patient with prior low back surgery and continued low back pain. COMPARISON: MRI lumbar spine on 02/25/2020 FINDINGS: Vascular calcifications are seen in the abdominal aorta. Remote T12 vertebral body compression fracture is again seen. No additional fracture or subluxation i s seen involving the lumbar spine. Postoperative changes lumbosacral junction related to posterior fusion are seen. No hardware complication is appreciated. T12-L1: Disc osteophyte complex is present with a central disc protrusion. This disc protrusion does encroach on the anterior aspect of the spinal cord resulting in very slight effacement of the anterior aspect of the spinal cord. Neural foramina are patent. L1-2: Broad-based disc osteophyte complex with facet hypertrophic changes. Very slight mass effect on the anterior aspect of the ventral subarachnoid space. Neural foramina are patent L2-3: Mild disc osteophyte complex resulting in flattening the anterior aspect of the thecal sac with mild narrowing of the central spinal canal. Neural foramina are patent. L3-4: Mild disc osteophyte complex with small tiny central disc protrusion. Facet hypertrophic change s and ligamentous thickening are noted. Findings result in mild narrowing of the central spinal canal. Mild bilateral neural foraminal narrowing is present. L4-5: Significant streak artifact secondary to posterior spinal hardware. Right laminotomy defect is present at this level. The neural foramina are difficult to adequately assess, but there is suggestion of mild right and at least moderate left-sided neural foraminal narrowing. Generalized rena rowing of the central spinal canal is present. L5-S1: Bipedicular screws with posterior interlocking bars are seen transfixing this level. Patient i s seen. Neural foramina are obscured due to streak artifact. The central spinal canal the L5-S1 level does appear patent. Thecal sac posterior to the L5 vertebral body is mostly obscured. IMPRESSION: 1. Postoperative and degenerative changes of the lumbar spine. Mild degrees of neural foraminal narro wing are seen in the lower lumbar spine with moderate left-sided neural foraminal narrowing at the L4-5 level. The neural foramina as well as portion of the central spinal canal are obscured at the L5 -S1 level due to streak artifact from spinal hardware.
--- NOTE | 2020-03-10 12:03 | RAD ---
PROCEDURE: XR Myelogram Lumbar Spine PROVIDED CLINICAL HISTORY: Lumbar radiculopathy TECHNIQUE: The procedure including risks and complications were explained to the patient, and informed consent w as obtained. Patient was placed on the fluoroscopy table in the prone position. An area overlying the L3-4 interspace was marked, and the area was meticulously prepped and draped in usual sterile fas hion. Skin and subcutaneous tissues were infiltrated with buffered 1% lidocaine for local anesthesia. A 22- gauge spinal needle was advanced into the thecal sac. The inner stylette was removed with a return of clear cerebral spinal fluid. Approximately 8 mL of Isovue-M 200 contrast was instilled into the th ecal sac. The inner stylette was replaced, and the needle was removed. Hemostasis was achieved with direct pressure, and a dry sterile dressing was placed. Patient tolerate d the procedure well and without immediate complication. Patient was transported to CT for further imaging. AP and lateral views lumbar spine are obtained and compared to a prior study on 08/15/2017. Postoperat jose a changes lumbosacral junction are noted with bipedicular screws and vertical rods transfixing this level. Scattered osteophytes are seen in the lumbar spine. Vertebral body heights of the lumbar spine are within normal limits. A stable compression fracture of the T12 vertebral body is present. Prominent Schmorl's node is seen in the superior endplate of the L2 vertebral body. Metallic densitie s overlie the epigastric region related to prior surgery. Vascular calcifications are seen in the abdominal aorta. Fluoroscopy: Time-0.7 minutes Dose-85.1 microGy meter squared IMPRESSION: 1. Technically successful lumbar myelogram with puncture at the L3-[address] lumbar spin e performed postmyelogram for further details. 2. Stable degree of height loss involving a T12 vertebral body compression fracture.
[2020-03-10] MEDS ORDERED: Iopamidol-M 200 41% 20 ML VIAL ONE (14:33)
== END 2020-03-10 09:45 | disposition home or self-care (01) ==
LOC: RAD 06:41
PROVIDERS: ATTEND Neurological Surgery
PROC: B01B1ZZ Fluoroscopy of Spinal Cord using Low Osmolar Contrast (ICD-10-PCS; principal; 2020-03-10)
DX: M51.16 Intervertebral disc disorders with radiculopathy, lumbar region (principal); M51.25 Other intervertebral disc displacement, thoracolumbar region; M48.061 Spinal stenosis, lumbar region without neurogenic claudication; I70.0 Atherosclerosis of aorta; J45.909 Unspecified asthma, uncomplicated; F31.9 Bipolar disorder, unspecified; K21.9 Gastro-esophageal reflux disease without esophagitis; Q24.9 Congenital malformation of heart, unspecified; Z79.51 Long term (current) use of inhaled steroids; Z79.82 Long term (current) use of aspirin; Z79.899 Other long term (current) drug therapy; Z88.0 Allergy status to penicillin; Z88.6 Allergy status to analgesic agent; Z98.1 Arthrodesis status
CPT/HCPCS: 62304; 72132; Q9966

== ENCOUNTER 2020-04-27 12:08 | Outpatient (CLI) | payer MEDICARE, MEDICAID ==
--- NOTE | 2020-04-27 13:23 | RAD ---
2 VIEW CHEST: Date: 04/27/2020 HISTORY: Dyspnea. COMPARISON: 10/09/2019. FINDINGS: There is a hazy area of opacity in the left lung base which is new from prior exam and could represen t an area of ground-glass infiltrate. The lungs are otherwise clear. The interstitium is upper normal, but appears stable. Heart and medias tinum unremarkable. Postop sternotomy changes are again noted. IMPRESSION: A focal area of opacity in the left lung base peripherally is suspicious for focal infiltrate. Recomm end clinical correlation and follow-up. POS: [facility]
== END 2020-04-27 12:09 | disposition home or self-care (01) ==
LOC: BICRAD 12:08
PROVIDERS: ATTEND Internal Medicine Critical Care Medicine
DX: R06.00 Dyspnea, unspecified (principal); R91.8 Other nonspecific abnormal finding of lung field
CPT/HCPCS: 71046

== ENCOUNTER 2020-12-26 13:27 | Outpatient (CLI) | payer MEDICARE, MEDICAID | END 2020-12-26 13:28 | disposition home or self-care (01) | LOC: CTENTCT 13:27 | PROVIDERS: ATTEND Otolaryngology Plastic Surgery within the Head & Neck | DX: J32.9 Chronic sinusitis, unspecified (principal) | CPT/HCPCS: 70486 ==

== ENCOUNTER 2021-04-16 07:45 | Outpatient (CLI) | payer MEDICARE, MEDICAID ==
[2021-04-16] MEDS ORDERED: Iopamidol 370 76% 100 ML VIAL ONE (09:45)
== END 2021-04-16 07:46 | disposition home or self-care (01) ==
LOC: CT 07:45
PROVIDERS: ATTEND Physician Assistant Medical
DX: K58.2 Mixed irritable bowel syndrome (principal); R10.31 Right lower quadrant pain; K57.30 Diverticulosis of large intestine without perforation or abscess without bleeding; Z90.710 Acquired absence of both cervix and uterus
CPT/HCPCS: 74177

== ENCOUNTER 2021-04-23 12:36 | Emergency (ER) | payer MEDICARE, MEDICAID ==
[~2021-04-23 12:36] MED LIST: Iopamidol-370 76% 500 ML 1 ML ONE
[2021-04-23 13:10] LABS: #Basophils 0.1 thou/uL (0.0-0.2); #Eosinphils 0.7 thou/uL (0.0-0.7); #Lymphocytes 1.5 thou/uL (1.20-3.40); #Monocytes 0.4 thou/uL (0.11-0.59); #Neutrophils 4.2 thou/uL (1.40-6.50); %Basophils 1.1 % (0.0-1.0); %Eosinophils 10.2 % (0.0-10.0); %Lymphocytes 21.9 % (21.0-51.0); %Monocytes 6.1 % (0.0-10.0); %Neutrophils 60.7 % (42.0-75.0); Hemoglobin 14.2 g/dL (12.0-16.0); Mean Corpuscular HGB CONC 34.3 g/dL (32.0-36.0); Mean Corpuscular Hemoglobin 31.3 pg (27.0-31.0); Mean Corpuscular Volume 91.4 fL (78.0-98.0); Mean Platelet Volume 8.1 fL (7.4-10.4); Platelet Count 202 thou/uL (130-400); RBC Distribution Width 12.7 % (11.5-14.5); Red Blood Cell (RBC) Count 4.52 mill/uL (4.20-5.40); White Blood Cell (WBC) Count 6.9 thou/uL (4.8-10.8)
[2021-04-23 13:46] LABS: ALT (SGPT) 8 U/L (8-55); AST (SGOT) 19 U/L (5-34); Albumin 3.9 g/dL (3.5-5.0); Alkaline Phosphatase 103 U/L (40-110); Anion Gap 11 mmol/L (10-20); BUN (Urea Nitrogen) 16 mg/dL (9.8-20.1); Bilirubin, Total 0.5 mg/dL (0.2-1.2); Calc. Creatinine Clearance 0 mL/min (70-130); Calcium 8.7 mg/dL (7.8-10.44); Carbon Dioxide 24 mmol/L (22-29); Chloride 107 mmol/L (98-107); Globulin 2.7 g/dL (2.4-3.5); Glucose 99 mg/dL (70-105); Potassium 4.4 mmol/L (3.5-5.1); Protein, Total 6.6 g/dL (6.0-8.3); Sodium 138 mmol/L (136-145)
[2021-04-23 16:19] LABS: Bilirubin Negative (Negative); Blood, Urine Negative (Negative); Clarity Clear (Clear); Glucose, Urine (Dipstick) Normal (Negative); Ketone, Urine Negative (Negative); Leukocyte Negative Leu/uL (Negative); Nitrite Negative (Negative); Protein, Urine (Dipstick) Negative (Neg-Trace); Specific Gravity, Urine 1.019 (1.002-1.036); Urobilinogen Normal mg/dL (Less than 2); pH, Urine 5.5 (5.0-9.0)
[2021-04-23] MEDS ORDERED: Ondansetron PF 4 MG/2 ML Vial ONE (17:22)
[2021-04-23] MEDS ORDERED: Acetaminophen 500 MG TAB ONE (17:22)
== END 2021-04-23 19:16 | disposition home or self-care (01) ==
LOC: ERS 12:36
DX: R10.9 Unspecified abdominal pain (principal); I10 Essential (primary) hypertension; J44.9 Chronic obstructive pulmonary disease, unspecified; Z85.028 Personal history of other malignant neoplasm of stomach; Z79.82 Long term (current) use of aspirin; Z79.899 Other long term (current) drug therapy
CPT/HCPCS: 36415; 74177; 80053; 81003; 83690; 85025; 96374; J2405

== ENCOUNTER 2021-05-28 07:35 | Outpatient (CLI) | payer MEDICARE | END 2021-05-28 07:36 | disposition home or self-care (01) | LOC: RAD 07:35 | PROVIDERS: ATTEND Internal Medicine Critical Care Medicine | DX: R06.00 Dyspnea, unspecified (principal) | CPT/HCPCS: 71046 ==

== ENCOUNTER 2021-07-15 14:06 | Emergency (ER) | payer MEDICARE, OTHER ==
[2021-07-15] MEDS ORDERED: Ketorolac Tromethamine 30 MG/ML VIAL ONE (15:37)
== END 2021-07-15 16:02 | disposition home or self-care (01) ==
LOC: ERS 14:06
DX: M25.562 Pain in left knee (principal); M25.561 Pain in right knee
CPT/HCPCS: 96372; J1885

== ENCOUNTER 2021-07-25 12:43 | Inpatient (IN) | payer MEDICARE, MEDICAID ==
[2021-07-25] MEDS ORDERED: Morphine 4 MG/ML VIAL ONE (17:58)
[2021-07-25] MEDS ORDERED: Ondansetron PF 4 MG/2 ML Vial ONE (17:58)
[2021-07-25] MEDS ORDERED: Benzonatate 100 MG CAP ONE (17:59)
[2021-07-25 18:51] LABS: #Lymphocytes 1.9 thou/uL (1.20-3.40); #Monocytes 0.6 thou/uL (0.11-0.59); #Neutrophils 5.1 thou/uL (1.40-6.50); %Basophils 0.5 % (0.0-1.0); %Eosinophils 11.4 % (0.0-10.0); %Lymphocytes 22.1 % (21.0-51.0); %Monocytes 7.4 % (0.0-10.0); %Neutrophils 58.5 % (42.0-75.0); Hemoglobin 13.4 g/dL (12.0-16.0); Mean Corpuscular HGB CONC 34.2 g/dL (32.0-36.0); Mean Corpuscular Volume 90.6 fL (78.0-98.0); Mean Platelet Volume 8.9 fL (7.4-10.4); Platelet Count 215 thou/uL (130-400); RBC Distribution Width 12.4 % (11.5-14.5); Red Blood Cell (RBC) Count 4.33 mill/uL (4.20-5.40); White Blood Cell (WBC) Count 8.6 thou/uL (4.8-10.8)
[2021-07-25 19:44] LABS: ALT (SGPT) 8 U/L (8-55); AST (SGOT) 17 U/L (5-34); Alkaline Phosphatase 111 U/L (40-110); Anion Gap 15 mmol/L (10-20); BUN (Urea Nitrogen) 11 mg/dL (9.8-20.1); Bilirubin, Total 0.5 mg/dL (0.2-1.2); Calc. Creatinine Clearance 0 mL/min (70-130); Calcium 8.8 mg/dL (7.8-10.44); Carbon Dioxide 22 mmol/L (22-29); Chloride 107 mmol/L (98-107); Globulin 2.9 g/dL (2.4-3.5); Glucose 119 mg/dL (70-105); Potassium 3.7 mmol/L (3.5-5.1); Protein, Total 6.9 g/dL (6.0-8.3); Sodium 140 mmol/L (136-145)
[2021-07-25 21:57] LABS: SARS-CoV-2 NAA Rapid Test Not Detected (NotDetected)
[2021-07-25] MEDS ORDERED: Ondansetron ODT 4 MG TAB PO PRN (23:12)
[2021-07-25] MEDS ORDERED: Ondansetron PF 4 MG/2 ML Vial IVP PRN (23:12)
[2021-07-25] MEDS ORDERED: Acetaminophen 325 MG TAB PO PRN (23:12)
[2021-07-25] MEDS ORDERED: predniSONE 20 MG TAB PO SCH (23:15)
[2021-07-25] MEDS ORDERED: Azithromycin 500 MG in Sodium Chloride 0.9% 250 ML 250 ML IVPB SCH (23:15)
[2021-07-25] MEDS ORDERED: Cepastat Lozenges 1 LOZ PO PRN (23:16)
[2021-07-25] MEDS ORDERED: Benzonatate 100 MG CAP PO PRN (23:16)
[2021-07-25] MEDS ORDERED: Lactated Ringer's 1,000 ML IV SCH (23:30)
[2021-07-25] MEDS ORDERED: Azithromycin 500 MG VIAL ONE (23:47)
[2021-07-25] MEDS ORDERED: predniSONE 20 MG TAB ONE (23:47)
[2021-07-26 01:34] LABS: Troponin I Less than 0.010 ng/mL (< 0.028)
[2021-07-26] MEDS ORDERED: Albuterol 200 PUFF (6.7GM INHALER) INH PRN (02:58)
[2021-07-26 05:48] VITALS: BMI 28.5
[2021-07-26 05:54] LABS: Band 1 % (5-11); Eosinophils 1 % (0-10); Hemoglobin 13.1 g/dL (12.0-16.0); Lymphocytes 8 % (21-51); MDiff Complete? YES; Mean Corpuscular HGB CONC 34.1 g/dL (32.0-36.0); Mean Corpuscular Hemoglobin 31.5 pg (27.0-31.0); Mean Corpuscular Volume 92.3 fL (78.0-98.0); Mean Platelet Volume 8.1 fL (7.4-10.4); Monocytes 2 % (0-10); Neutrophil 88 % (42-75); Platelet Count 190 thou/uL (130-400); Platelet Morphology Comment Appears Adequate; RBC Distribution Width 12.2 % (11.5-14.5); Red Blood Cell (RBC) Count 4.15 mill/uL (4.20-5.40); White Blood Cell (WBC) Count 6.8 thou/uL (4.8-10.8)
[2021-07-26 06:26] LABS: Anion Gap 11 mmol/L (10-20); BUN (Urea Nitrogen) 10 mg/dL (9.8-20.1); Calc. Creatinine Clearance 97 mL/min (70-130); Carbon Dioxide 23 mmol/L (22-29); Chloride 109 mmol/L (98-107); Glucose 133 mg/dL (70-105); Potassium 4.2 mmol/L (3.5-5.1); Sodium 139 mmol/L (136-145)
[2021-07-26] MEDS: Albuterol 200 PUFF (6.7GM INHALER) INH SCH ×2 (08:12→10:30)
[2021-07-26] MEDS: predniSONE 20 MG TAB PO SCH (08:51)
[2021-07-26] MEDS ORDERED: guaiFENesin ER 600 MG TAB PO SCH (09:00)
[2021-07-26] MEDS ORDERED: cefTRIAXone\\ROCEPHIN 1 GM in Sodium Chloride 0.9% 100 ML IVPB SCH (10:00)
[2021-07-26] MEDS: Enoxaparin Sodium 40 MG/0.4 ML SYRINGE SC SCH (10:11)
[2021-07-26] MEDS: Benzonatate 100 MG CAP PO SCH ×3 (10:11→22:28)
[2021-07-26 11:19] LABS: Legionella Urinary Ag Negative (Negative)
[2021-07-26] MEDS ORDERED: Metoprolol Tartrate 25 MG TAB PO SCH (14:45)
[2021-07-26] MEDS ORDERED: Spironolactone 25 MG TAB PO SCH (14:45)
[2021-07-26] MEDS: Gabapentin 300 MG CAP PO SCH ×2 (15:11→22:28)
[2021-07-26 17:03] LABS: Strep pneumo Urine Ag NEGATIVE (NEGATIVE)
[2021-07-26] MEDS: COLESEVELAM PO SCH (17:06)
[2021-07-26] MEDS: Nortriptyline 10 MG CAP PO SCH (22:27)
[2021-07-26] MEDS: Metoprolol Tartrate 25 MG TAB PO SCH (22:27)
[2021-07-26] MEDS: Azithromycin 250 MG TAB PO SCH (22:29)
[2021-07-27] MEDS: COLESEVELAM PO SCH ×2 (08:50→17:39)
[2021-07-27] MEDS: Fluticasone Propionate Nasal Spray 16 gm Bottle NASAL SCH (08:50)
[2021-07-27] MEDS: Benzonatate 100 MG CAP PO SCH ×3 (08:54→21:42)
[2021-07-27] MEDS: Enoxaparin Sodium 40 MG/0.4 ML SYRINGE SC SCH (08:55)
[2021-07-27] MEDS: Furosemide 20 MG TAB PO SCH (08:55)
[2021-07-27] MEDS: Aspirin 81 mg Enteric Coated Tablet PO SCH (08:55)
[2021-07-27] MEDS: Atorvastatin Calcium 40 MG TAB PO SCH (08:56)
[2021-07-27] MEDS: Gabapentin 300 MG CAP PO SCH ×3 (08:57→21:42)
[2021-07-27] MEDS: Metoprolol Tartrate 25 MG TAB PO SCH ×2 (08:58→21:42)
[2021-07-27] MEDS: predniSONE 20 MG TAB PO SCH (08:58)
[2021-07-27] MEDS: Polyethylene Glycol 3350 17 GM Packet PO SCH (09:00)
[2021-07-27] MEDS: Spironolactone 25 MG TAB PO SCH (09:17)
[2021-07-27] MEDS: Nortriptyline 10 MG CAP PO SCH (21:42)
[2021-07-27] MEDS: Azithromycin 250 MG TAB PO SCH (21:43)
[2021-07-28] MEDS: guaiFENesin ER 600 MG TAB PO PRN (00:31)
[2021-07-28] MEDS: COLESEVELAM PO SCH ×2 (08:40→17:09)
[2021-07-28] MEDS: Gabapentin 300 MG CAP PO SCH ×3 (08:41→20:47)
[2021-07-28] MEDS: Aspirin 81 mg Enteric Coated Tablet PO SCH (08:41)
[2021-07-28] MEDS: Spironolactone 25 MG TAB PO SCH (08:41)
[2021-07-28] MEDS: Polyethylene Glycol 3350 17 GM Packet PO SCH (08:41)
[2021-07-28] MEDS: Benzonatate 100 MG CAP PO SCH ×3 (08:41→21:02)
[2021-07-28] MEDS: Enoxaparin Sodium 40 MG/0.4 ML SYRINGE SC SCH (08:41)
[2021-07-28] MEDS: Fluticasone Propionate Nasal Spray 16 gm Bottle NASAL SCH ×2 (08:41→11:53)
[2021-07-28] MEDS: Furosemide 20 MG TAB PO SCH (08:42)
[2021-07-28] MEDS: Atorvastatin Calcium 40 MG TAB PO SCH (08:42)
[2021-07-28] MEDS: predniSONE 20 MG TAB PO SCH (08:42)
[2021-07-28] MEDS: Metoprolol Tartrate 25 MG TAB PO SCH ×2 (08:43→20:48)
[2021-07-28] MEDS ORDERED: Sodium Chloride 0.65% Nasal 44 ML BOT EA NARE PRN (10:07)
[2021-07-28] MEDS: Azithromycin 250 MG TAB PO SCH (20:48)
[2021-07-28] MEDS: Nortriptyline 10 MG CAP PO SCH (21:02)
[2021-07-29] MEDS: Enoxaparin Sodium 40 MG/0.4 ML SYRINGE SC SCH (09:04)
[2021-07-29] MEDS: predniSONE 20 MG TAB PO SCH (09:04)
[2021-07-29] MEDS: Polyethylene Glycol 3350 17 GM Packet PO SCH (09:04)
[2021-07-29] MEDS: Gabapentin 300 MG CAP PO SCH (09:05)
[2021-07-29] MEDS: Aspirin 81 mg Enteric Coated Tablet PO SCH (09:05)
[2021-07-29] MEDS: Spironolactone 25 MG TAB PO SCH (09:05)
[2021-07-29] MEDS: Atorvastatin Calcium 40 MG TAB PO SCH (09:06)
[2021-07-29] MEDS: Metoprolol Tartrate 25 MG TAB PO SCH (09:07)
[2021-07-29] MEDS: Furosemide 20 MG TAB PO SCH (09:07)
[2021-07-29] MEDS: Fluticasone Propionate Nasal Spray 16 gm Bottle NASAL SCH (09:08)
[2021-07-29] MEDS: COLESEVELAM PO SCH (09:08)
[2021-07-29] MEDS: Benzonatate 100 MG CAP PO SCH (09:09)
[2021-07-29] MEDS: guaiFENesin ER 600 MG TAB PO PRN (11:07)
[2021-07-29] MEDS ORDERED: Azithromycin 250 MG TAB PO SCH (11:15)
[2021-07-29 11:48] VITALS: BP 119/84; TEMP 97.7
== END 2021-07-29 13:30 | disposition home or self-care (01) | DRG 193 ==
LOC: ERS 12:43 → ERHOLD 20:00 → NEURO 07-26 05:19 → OBSVTOIN 07-27 09:25
PROVIDERS: ADMIT Student in an Organized Health Care Education/Training Program; ATTEND Student in an Organized Health Care Education/Training Program
DX: J12.89 Other viral pneumonia (principal); Z20.822 Contact with and (suspected) exposure to COVID-19; J96.01 Acute respiratory failure with hypoxia; J44.1 Chronic obstructive pulmonary disease with (acute) exacerbation; R04.2 Hemoptysis; F90.9 Attention-deficit hyperactivity disorder, unspecified type; E78.5 Hyperlipidemia, unspecified; I10 Essential (primary) hypertension; F32.A Depression, unspecified; Z77.22 Contact with and (suspected) exposure to environmental tobacco smoke (acute) (chronic); B97.89 Other viral agents as the cause of diseases classified elsewhere; Z88.0 Allergy status to penicillin; Z88.8 Allergy status to other drugs, medicaments and biological substances; Z79.899 Other long term (current) drug therapy; Z79.82 Long term (current) use of aspirin; Z79.51 Long term (current) use of inhaled steroids; Z98.49 Cataract extraction status, unspecified eye; Z90.710 Acquired absence of both cervix and uterus
CPT/HCPCS: 36415; 71046; 71275; 80048; 80053; 84145; 84484; 85007; 85025; 85027; 87449; 87633; 87899; 93005; 94640; 96365; 96368; J0456; J0696; J1650; J2270; J2405; J3490; J7050; J7120; J7512; J7620; U0002

== ENCOUNTER 2022-01-14 14:31 | Observation (INO) | payer OTHER, MEDICAID ==
[2022-01-14 15:24] LABS: ALT (SGPT) 15 U/L (8-55); AST (SGOT) 24 U/L (5-34); Albumin 3.9 g/dL (3.5-5.0); Alkaline Phosphatase 134 U/L (40-110); Anion Gap 17 mmol/L (10-20); BUN (Urea Nitrogen) 16 mg/dL (9.8-20.1); Bilirubin, Total 0.5 mg/dL (0.2-1.2); Calc. Creatinine Clearance 0 mL/min (70-130); Calcium 8.5 mg/dL (7.8-10.44); Carbon Dioxide 20 mmol/L (22-29); Chloride 107 mmol/L (98-107); Globulin 3.2 g/dL (2.4-3.5); Glucose 103 mg/dL (70-105); Lipase 49 U/L (8-78); Potassium 4.9 mmol/L (3.5-5.1); Protein, Total 7.1 g/dL (6.0-8.3); Sodium 139 mmol/L (136-145)
[2022-01-14 15:33] LABS: #Eosinphils 0.5 thou/uL (0.0-0.7); #Lymphocytes 1.9 thou/uL (1.20-3.40); #Monocytes 0.5 thou/uL (0.11-0.59); #Neutrophils 3.3 thou/uL (1.40-6.50); %Basophils 0.8 % (0.0-1.0); %Eosinophils 8.6 % (0.0-10.0); %Lymphocytes 29.9 % (21.0-51.0); %Monocytes 7.6 % (0.0-10.0); %Neutrophils 53.2 % (42.0-75.0); Hemoglobin 13.3 g/dL (12.0-16.0); Mean Corpuscular HGB CONC 31.8 g/dL (32.0-36.0); Mean Corpuscular Hemoglobin 29.6 pg (27.0-31.0); Mean Corpuscular Volume 92.8 fL (78.0-98.0); Mean Platelet Volume 8.3 fL (7.4-10.4); Platelet Count 216 thou/uL (130-400); RBC Distribution Width 12.8 % (11.5-14.5); White Blood Cell (WBC) Count 6.3 thou/uL (4.8-10.8)
[2022-01-14] MEDS ORDERED: Enoxaparin Sodium 60 MG/0.6 ML SYRINGE ONE (16:51)
[2022-01-14] MEDS ORDERED: Acetaminophen 325 MG TAB PO PRN (17:38)
[2022-01-14] MEDS ORDERED: Ondansetron ODT 4 MG TAB PO PRN (17:38)
[2022-01-14 18:38] VITALS: BMI 27.0
[2022-01-14] MEDS ORDERED: Nitroglycerin 0.4 MG TAB (25 Tab Bottle) SL PRN (18:38)
[2022-01-14] MEDS ORDERED: Cyclobenzaprine 10 MG TAB PO PRN (18:42)
[2022-01-14] MEDS ORDERED: Lidocaine 5% Patch TD PRN (18:42)
[2022-01-14] MEDS ORDERED: Atorvastatin Calcium 40 MG TAB PO SCH (21:00)
[2022-01-14] MEDS ORDERED: Nortriptyline 10 MG CAP PO SCH (21:00)
[2022-01-14] MEDS: Gabapentin 300 MG CAP PO SCH (21:07)
[2022-01-14] MEDS ORDERED: Albuterol Sulfate 2.5 mg/3 ml Neb NEB PRN (21:48)
[2022-01-15 04:29] LABS: #Basophils 0.1 thou/uL (0.0-0.2); #Eosinphils 0.4 thou/uL (0.0-0.7); #Monocytes 0.5 thou/uL (0.11-0.59); %Basophils 0.9 % (0.0-1.0); %Eosinophils 7.1 % (0.0-10.0); %Monocytes 8.2 % (0.0-10.0); %Neutrophils 50.7 % (42.0-75.0); Hemoglobin 12.8 g/dL (12.0-16.0); Mean Corpuscular HGB CONC 32.4 g/dL (32.0-36.0); Mean Corpuscular Hemoglobin 29.5 pg (27.0-31.0); Mean Corpuscular Volume 91.3 fL (78.0-98.0); Mean Platelet Volume 8.4 fL (7.4-10.4); Platelet Count 199 thou/uL (130-400); RBC Distribution Width 12.6 % (11.5-14.5); Red Blood Cell (RBC) Count 4.35 mill/uL (4.20-5.40); White Blood Cell (WBC) Count 5.9 thou/uL (4.8-10.8)
[2022-01-15 04:49] LABS: ALT (SGPT) 12 U/L (8-55); AST (SGOT) 18 U/L (5-34); Albumin 3.7 g/dL (3.5-5.0); Alkaline Phosphatase 109 U/L (40-110); Anion Gap 12 mmol/L (10-20); BUN (Urea Nitrogen) 11 mg/dL (9.8-20.1); Bilirubin, Total 0.5 mg/dL (0.2-1.2); Calc. Creatinine Clearance 81 mL/min (70-130); Calcium 8.9 mg/dL (7.8-10.44); Carbon Dioxide 27 mmol/L (22-29); Chloride 106 mmol/L (98-107); Glucose 98 mg/dL (70-105); Potassium 4.1 mmol/L (3.5-5.1); Protein, Total 6.7 g/dL (6.0-8.3); Sodium 141 mmol/L (136-145)
[2022-01-15] MEDS ORDERED: Mometasone 200 MCG/Formoterol 5 MCG 120 PUFF INHALER INH SCH (06:30)
[2022-01-15] MEDS ORDERED: Budesonide 0.5 MG/2 ML NEB NEB SCH (06:30)
[2022-01-15] MEDS ORDERED: Spironolactone 25 MG TAB PO SCH (09:00)
[2022-01-15] MEDS ORDERED: Furosemide 20 MG TAB PO SCH (09:00)
[2022-01-15] MEDS ORDERED: Polyethylene Glycol 3350 17 GM Packet PO SCH (09:00)
[2022-01-15] MEDS: Gabapentin 300 MG CAP PO SCH ×2 (09:02→14:15)
[2022-01-15] MEDS: Ipratropium Bromide 2.5 ml Neb NEB SCH ×2 (09:13→15:49)
[2022-01-15] MEDS ORDERED: Aspirin 81 mg Enteric Coated Tablet PO SCH (09:15)
[2022-01-15 16:34] VITALS: BP 132/71; TEMP 98.1
[2022-01-16] MEDS ORDERED: Aspirin 81 mg Enteric Coated Tablet PO SCH (09:00)
== END 2022-01-15 17:42 | disposition home or self-care (01) ==
LOC: ERS 14:31 → 2NO 17:03 → INTOOBSV 17:03
PROVIDERS: ADMIT Family Medicine; ATTEND Family Medicine
DX: M62.830 Muscle spasm of back (principal); R07.89 Other chest pain; J44.9 Chronic obstructive pulmonary disease, unspecified; I10 Essential (primary) hypertension; E78.5 Hyperlipidemia, unspecified; I25.10 Atherosclerotic heart disease of native coronary artery without angina pectoris; K21.9 Gastro-esophageal reflux disease without esophagitis; E78.00 Pure hypercholesterolemia, unspecified; Z77.22 Contact with and (suspected) exposure to environmental tobacco smoke (acute) (chronic); Z79.82 Long term (current) use of aspirin; Z79.899 Other long term (current) drug therapy; Z88.0 Allergy status to penicillin; Z88.2 Allergy status to sulfonamides; Z88.8 Allergy status to other drugs, medicaments and biological substances; Z95.5 Presence of coronary angioplasty implant and graft; Z20.822 Contact with and (suspected) exposure to COVID-19
CPT/HCPCS: 71045; 78452; 80053 ×2; 83690; 84484 ×2; 85025 ×2; 93005; 93017; 94640; 94760; A9500; U0003; U0005; 36415; 96372; G0378; J1650

== ENCOUNTER 2022-08-15 10:00 | Outpatient (CLI) | payer OTHER, MEDICAID | END 2022-08-15 10:01 | disposition home or self-care (01) | LOC: BICMAMMO 10:00 | PROVIDERS: ATTEND Family Medicine | DX: N63.21 Unspecified lump in the left breast, upper outer quadrant (principal) | CPT/HCPCS: 76642; 77066; G0279 ==

== ENCOUNTER 2022-09-03 08:57 | Outpatient (CLI) | payer OTHER | END 2022-09-03 08:58 | disposition home or self-care (01) | LOC: BICRAD 08:57 | PROVIDERS: ATTEND Family Medicine | DX: M25.512 Pain in left shoulder (principal) ==

== ENCOUNTER 2022-10-17 13:04 | Emergency (ER) | payer OTHER ==
[2022-10-17 13:43] LABS: #Eosinphils 0.5 thou/uL (0.0-0.7); #Lymphocytes 2.3 thou/uL (1.20-3.40); #Monocytes 0.4 thou/uL (0.11-0.59); #Neutrophils 1.6 thou/uL (1.40-6.50); %Eosinophils 10.9 % (0.0-10.0); %Lymphocytes 47.7 % (21.0-51.0); %Monocytes 7.9 % (0.0-10.0); %Neutrophils 32.6 % (42.0-75.0); Hemoglobin 14.7 g/dL (12.0-16.0); Mean Corpuscular HGB CONC 33.4 g/dL (32.0-36.0); Mean Corpuscular Hemoglobin 30.2 pg (27.0-31.0); Mean Corpuscular Volume 90.4 fl (78.0-98.0); Mean Platelet Volume 8.1 fL (7.4-10.4); Platelet Count 244 10x3/uL (130-400); RBC Distribution Width 12.8 % (11.5-14.5); Red Blood Cell (RBC) Count 4.86 mill/uL (4.20-5.40); White Blood Cell (WBC) Count 4.8 10x3/uL (4.8-10.8)
[2022-10-17] MEDS ORDERED: Morphine 4 MG/ML VIAL ONE (14:06)
[2022-10-17] MEDS ORDERED: Ondansetron PF 4 MG/2 ML Vial ONE (14:06)
[2022-10-17 14:20] LABS: Albumin 4.2 g/dL (3.5-5.0)
[2022-10-17 14:21] LABS: Chloride 105 mmol/L (98-107); Potassium 5.9 mmol/L (3.5-5.1); Sodium 136 mmol/L (136-145)
[2022-10-17 14:22] LABS: Calcium 8.6 mg/dL (7.8-10.44)
[2022-10-17 14:23] LABS: Globulin 3.8 g/dL (2.4-3.5)
[2022-10-17 14:24] LABS: Anion Gap 18 mmol/L (10-20); Bilirubin, Total 0.5 mg/dL (0.2-1.2); Carbon Dioxide 19 mmol/L (22-29); Glucose 99 mg/dL (70-105)
[2022-10-17 14:25] LABS: Alcohol 238 mg/dL (Less than 10)
[2022-10-17 14:26] LABS: Calc. Creatinine Clearance 0 mL/min (70-130); Estimated GFR 79
[2022-10-17 14:27] LABS: Alkaline Phosphatase 108 U/L (40-110)
[2022-10-17 14:28] LABS: AST (SGOT) 35 U/L (5-34)
[2022-10-17 14:29] LABS: BUN (Urea Nitrogen) 10 mg/dL (9.8-20.1)
[2022-10-17 14:30] LABS: ALT (SGPT) 15 U/L (8-55); Acetaminophen Less than 10.0 mcg/mL (10.0-30.0); Salicylate Less than 8.0 mg/dL (15.0-30.0)
[2022-10-17 14:43] LABS: Bilirubin Negative (Negative); Blood, Urine Negative (Negative); Clarity Clear (Clear); Glucose, Urine (Dipstick) Normal (Negative); Ketone, Urine Negative (Negative); Leukocyte Negative Leu/uL (Negative); Nitrite Negative (Negative); Protein, Urine (Dipstick) Negative (Neg-Trace); Specific Gravity, Urine 1.004 (1.002-1.036); Urobilinogen Normal mg/dL (Less than 2)
[2022-10-17 14:51] LABS: Amphetamine Not Detected (NotDetected); Barbiturates Screen Not Detected (NotDetected); Benzodiazepine Screen Not Detected (NotDetected); Cocaine Metabolite Screen Not Detected (NotDetected); Methadone Not Detected (NotDetected); Methamphetamine Not Detected (NotDetected); Opiate Screen Not Detected (NotDetected); Oxycodone Screen Not Detected (NotDetected); Phencyclidine (PCP) Not Detected (NotDetected); THC/Cannabinoid Screen Not Detected (NotDetected); Tricyclic Screen Not Detected (NotDetected)
[2022-10-17] MEDS ORDERED: Thiamine 100 MG TAB ONE (15:06)
== END 2022-10-17 15:27 | disposition home or self-care (01) ==
LOC: ERS 13:04
DX: K29.70 Gastritis, unspecified, without bleeding (principal); F10.129 Alcohol abuse with intoxication, unspecified; Y90.7 Blood alcohol level of 200-239 mg/100 ml
CPT/HCPCS: 36415; 71045; 74177; 80053; 80306; 80307; 81003; 83605; 85025; 87040; 87086; 93005; 96361; 96374; 96375; J2270; J2405; J3411

== ENCOUNTER 2023-08-27 08:34 | Outpatient (CLI) | payer OTHER, MEDICAID | END 2023-08-27 08:35 | disposition home or self-care (01) | LOC: BICMAMMO 08:34 | PROVIDERS: ATTEND Family Medicine | DX: Z12.31 Encounter for screening mammogram for malignant neoplasm of breast (principal) | CPT/HCPCS: 77063; 77067 ==

== ENCOUNTER 2025-02-25 05:39 | Day surgery (SDC) | payer OTHER, MEDICAID ==
[2025-02-24 15:31] VITALS: BMI 30.4
[2025-02-25] MEDS ORDERED: PROPOFOL 20 ML ONE ×2 (09:06→09:23)
== END 2025-02-25 11:58 | disposition home or self-care (01) ==
LOC: SDC 05:39
PROVIDERS: ATTEND Internal Medicine Gastroenterology
PROC: 0DB68ZX Excision of Stomach, Via Natural or Artificial Opening Endoscopic, Diagnostic (ICD-10-PCS; principal; 2025-02-25)
PROC: 0DBK8ZZ Excision of Ascending Colon, Via Natural or Artificial Opening Endoscopic (ICD-10-PCS; 2025-02-25)
DX: K29.50 Unspecified chronic gastritis without bleeding (principal); D17.5 Benign lipomatous neoplasm of intra-abdominal organs; K58.2 Mixed irritable bowel syndrome; J45.909 Unspecified asthma, uncomplicated; Z86.0100 Personal history of colon polyps, unspecified; Z86.73 Personal history of transient ischemic attack (TIA), and cerebral infarction without residual deficits; Z95.1 Presence of aortocoronary bypass graft; Z90.710 Acquired absence of both cervix and uterus; Z98.890 Other specified postprocedural states; Z88.6 Allergy status to analgesic agent; Z91.011 Allergy to milk products; Z88.0 Allergy status to penicillin; Z88.2 Allergy status to sulfonamides; Z79.51 Long term (current) use of inhaled steroids
CPT/HCPCS: 43239; 45385; 93005; J2704; 88305; 88342; 93010

== ENCOUNTER 2025-05-20 12:47 | Outpatient (CLI) | payer OTHER, MEDICAID ==
[2025-05-20 14:02] LABS: Estimated GFR - POC 64.0
[2025-05-20] MEDS ORDERED: Iopamidol 370 76% 100 ML VIAL ONE (14:53)
== END 2025-05-20 12:48 | disposition home or self-care (01) ==
LOC: CT 12:47
PROVIDERS: ATTEND Physician Assistant Medical
DX: K58.2 Mixed irritable bowel syndrome (principal); R11.0 Nausea; R10.9 Unspecified abdominal pain; R14.0 Abdominal distension (gaseous); K76.0 Fatty (change of) liver, not elsewhere classified
CPT/HCPCS: 36415; 74177; 82565; Q9967